=== PATIENT | female | born 1980 | race Caucasian/White ===

== ENCOUNTER 2018-11-12 00:27 | Inpatient (IN) | payer OTHER ==
[~2018-11-12] VITALS: Ht 157.5 cm; Wt 74.6 kg
--- NOTE | 2018-11-12 01:25 | NUR ---
PT A/O X 4, SPEECH CLEAR, PRESENTS TO ED WITH C/O RUQ PAIN. BREATHING E/U, SKIN WARM, DRY AND INTACT. NAD NOTED. WILL CONTINUE TO MONITOR.
[2018-11-12 01:34] LABS: BASOPHIL % 0.5 % (0-2); PLATELET COUNT 233 x10^3mcL (130-400); RED CELL DISTRIBUTION WIDTH 14.1 % (11.5-14.5)
--- NOTE | 2018-11-12 01:55 | NUR ---
MEDICATED PER MD ORDERS.
[2018-11-12 02:22] LABS: CALCIUM 8.4 mg/dL (8.5-10.1); CARBON DIOXIDE 21.7 mmol/L (21-32); CHLORIDE SERUM 108 mmol/L (98-107); CREATININE SERUM 0.6 mg/dL (0.6-1.0); GFR1 > 60 mL/min; GLUCOSE SERUM 122 mg/dL (74-106); POTASSIUM SERUM 3.9 mmol/L (3.5-5.1); SODIUM SERUM 139 mmol/L (136-145)
[2018-11-12 02:29] LABS: ALBUMIN 3.4 g/dL (3.4-5.0); ALKALINE PHOSPHATASE 191 U/L (46-116); ALT/SGPT 371 U/L (14-59); AST/SGOT 129 U/L (15-37); BILIRUBIN TOTAL 2.83 mg/dL (0.20-1.00)
[2018-11-12 02:30] LABS: LIPASE 13506 IU/L (73-393)
--- NOTE | 2018-11-12 04:02 | NUR ---
PATIENT VOMITING AT BEDSIDE. MEDICATED PER MD ORDERS. WILL CONTINUE TO MONITOR.
--- NOTE | 2018-11-12 04:28 | NUR ---
REPORT GIVEN TO JUNITO LOPEZ FOR CONTINUED CARE OF PATIENT.
--- NOTE | 2018-11-12 04:31 | NUR ---
PT RECEIVED FROM ED VIA ALYSE ACCOMPANIED BY LARISA. PT A/O X4, NORTH [place]ORE[place] SPEAKING, ABLE TO MAKE NEEDS KNOWN. MED-SURG, DENIES ANY CP/PRESSURE. PULSES PALPABLE, NO EDEMA PRESENT. BREATHING IS EVEN AND UNLABORED ON RA, NO RESP DISTRESS NOTED. ABD SOFT AND ROUND, BOWEL TONES ACTIVE X4 QUAD, PT REPORTS INTERMITTENT N/V, BUT DENIES ANY N/V AT THIS TIME. PT ADMITTED FOR GALLSTONE PANCREATITIS. VOIDS FREELY, BRP. GENERALIZED WEAKNESS, AMBULATORY WITH STEADY GAIT. SKIN IS WARM AND DRY, INTACT. PT C/O 10/10 ABD PAIN, WILL MEDICATE WITH PRN PAIN MED. IV TO LAC, PATENT AND INTACT, SITE WNL. ORIENTED PT TO ROOM AND CALL LIGHT. BED IN LOWEST SETTING, SIDE RAILS UP X2, CALL LIGHT WITHIN REACH. WILL CONT TO MONITOR.
[2018-11-12 04:41] VITALS: BP 120/66
--- NOTE | 2018-11-12 04:44 | NUR ---
PT C/O 01/24 ABD PAIN, PRN MORPHINE IVP GIVEN ORDERED. NO ACUTE DISTRESS NOTED. CALL LIGHT WITHIN REACH. WILL CONT TO MONITOR.
--- NOTE | 2018-11-12 06:57 | NUR ---
PT SLEPT AT INTERVALS THROUGHOUT THE EVENING. BREATHING IS EVEN AND UNLABORED, NO RESP DISTRESS NOTED. PT DENIES HAVING ANY PAIN AT THIS TIME. PT NPO, PT VERBALIZES UNDERSTANDING, NPO SIGN POSTED. NO ACUTE CHANGES ENCOUNTERED DURING SHIFT. ALL NEEDS MET AND ANTICIPATED. IVF INFUSING WELL, SITE WNL. CALL LIGHT WITHIN REACH, WILL ENDORSE CARE TO AM NURSE.
[2018-11-12 07:13] LABS: microscopic required? NO
--- NOTE | 2018-11-12 07:30 | NUR ---
RECEIVED PT IN BED. ASSESSED AND DOCUMENTED. DENIES PAIN THIS TIME. SAFTEY PRECAUTIONS ARE IN PLACE. WILL MONITOR.
[2018-11-12 07:37] LABS: UA SPECIFIC GRAVITY 1.015 (1.005-1.035); urine erythrocyte NEGATIVE (NEGATIVE)
[2018-11-12 07:49] LABS: AMPHETAMINE QUAL UR NONE DETECTED (See below)
--- NOTE | 2018-11-12 08:00 | NUR ---
GIOVANNA ZAVALA AWARE ABOUT PHOS=2.3, NO NEW OREDER RECEIVED THIS TIME.
[2018-11-12 08:02] LABS: BASOPHIL % 0 % (0-2); PLATELET COUNT 234 x10^3mcL (130-400)
[2018-11-12 08:22] LABS: ALT/SGPT 326 U/L (14-59); AST/SGOT 105 U/L (15-37)
[2018-11-12 08:25] LABS: CALCIUM 7.6 mg/dL (8.5-10.1); CARBON DIOXIDE 25.7 mmol/L (21-32); CHLORIDE SERUM 107 mmol/L (98-107); CREATININE SERUM 0.5 mg/dL (0.6-1.0); GFR1 > 60 mL/min; GLUCOSE SERUM 125 mg/dL (74-106); POTASSIUM SERUM 3.5 mmol/L (3.5-5.1); SODIUM SERUM 140 mmol/L (136-145)
[2018-11-12 08:29] LABS: MAGNESIUM 1.8 mg/dL (1.8-2.4); PHOSPHOROUS 2.3 mg/dL (2.5-4.9)
[2018-11-12 08:34] LABS: CHOLESTEROL/HDL RATIO 2.7; FREE THYROXINE INDEX 2.5 ug/dL (1.4-4.5); T4(THYROXINE) 7.7 ug/dL (4.7-13.3)
[2018-11-12 08:37] LABS: T3 TOTAL 0.84 ng/mL
--- NOTE | 2018-11-12 09:20 | NUR ---
WAS SEEN THE PT. SCHEDULED FOR ERCP. OR STAFF IS HERE TO TOBACCO PACKING MACHINE OPERATOR PT. OR NURSE SAID HE WILL GET CONSENT IN OR. CHECK LIST DONE. PT HAD LINDSEY WIPE. PT WENT DOWN TO OR VIA GURNEY. VITAL SIGNS STABLE.
[2018-11-12 09:35] VITALS: BP 111/72
[2018-11-12 10:15] LABS: LIPASE 17069 IU/L (73-393)
--- NOTE | 2018-11-12 12:10 | NUR ---
RECEIVED PT BACK FROM OR AFTER ERCP. PT IS STABLE. DENIES PAIN. VITAL SIGNS CHECKED AND STABLE. WILL MONITOR.
[2018-11-12 12:30] VITALS: BP 118/72
--- NOTE | 2018-11-12 14:48 | NUR ---
PT C/O ABD PAIN,11/24 AND RECIEVED MORPHIN IV AT 1418 AND REASSESSED NOW AND PT SAID NO MORE ABD PAIN. STABLE.
--- NOTE | 2018-11-12 16:20 | NUR ---
CAME AND SPOKE WITH PT, EXPLAINED PT ABOUT LAP CAITLYN AND RECIEVED CONSENT FROM PT. DENIES PAIN THIS TIME.
[2018-11-12 18:18] VITALS: BP 125/84
[2018-11-12 18:20] VITALS: BP 113/71
--- NOTE | 2018-11-12 18:38 | NUR ---
PT C/O ABD PAIN,11/24 AT 1808 AND MORPHIN IV GIVEN AND REASSESSED NOW AND PT SAID NO MORE ABD PAIN THIS TIME. STABLE.
--- NOTE | 2018-11-12 19:20 | NUR ---
PT IS SLEEPING THIS TIME. STABLE. GAVE REPORT TO MEDICAL RECORDS TECH NURSE.
--- NOTE | 2018-11-12 19:43 | NUR ---
RECEIVED PATIENT IN BED AWAKE, ALRT AND ORIENTED WITH NO C/O POST OPERATIVE PAIN AT THIS TIME. BREATHING EASY AND NONLABOR SATTING AT 98% RA. ABDOMEN ROUND AND NONTENDER WITH ACTIVE BS. INSTRUCTION ON NPO GIVEN FPR POSSIBLE PROCEDURE IN AM, PATIENT VERBALIZED UNDERSTANDING. IV TO LAC INTACT AND INFUSING WELL. WILL CONTINUE TO MONITOR. CALL LIGHT WITHIN REACH.
[2018-11-12 20:38] VITALS: BP 118/69
--- NOTE | 2018-11-12 21:15 | NUR ---
C/O ABDOMINAL PAIN AT SCALE OF 7/10 PER PATIENT ,MEDICATED WITH NORCO 1 TAB PO PRESCRIBED. WILL CONTINUE TO MONITOR. AT BEDSIDE.
--- NOTE | 2018-11-12 22:37 | NUR ---
MODRATE RELIEF NOTED PER PATIENT AFTER PAIN MEDS PO WAS GIVEN. WILL CONTINUE TO MONITOR.
--- NOTE | 2018-11-13 00:46 | NUR ---
APPEARS SLEEPING WITH EYES CLOSED, BREATHING EASY AND NONLABOR. WILL CONTINUE TO MONITOR.
--- NOTE | 2018-11-13 02:46 | NUR ---
AWAKE C/O ABDOMINAL PAIN AT SCALE OF 8/10 PER PATIENT, MORPHINE 2MG IVP GIVEN PRESCRIBED.
--- NOTE | 2018-11-13 05:05 | NUR ---
AWAKE MOST OF THE TIME C/O ABDOMINL AIN X3 THE ENTIRE SHIFT AND MEDICATED PRESCRIBED. KEPT NPO FOR SURGERY TODAY. ALL NEEDS ATTENDED.
[2018-11-13 05:35] VITALS: BP 125/73
[2018-11-13 07:05] LABS: ALKALINE PHOSPHATASE 144 U/L (46-116); ALT/SGPT 224 U/L (14-59); AST/SGOT 45 U/L (15-37); BILIRUBIN TOTAL 0.8 mg/dL (0.20-1.00); CALCIUM 7.2 mg/dL (8.5-10.1); CARBON DIOXIDE 22.7 mmol/L (21-32); CHLORIDE SERUM 107 mmol/L (98-107); CREATININE SERUM 0.5 mg/dL (0.6-1.0); GFR1 > 60 mL/min; GLUCOSE SERUM 74 mg/dL (74-106); SODIUM SERUM 142 mmol/L (136-145)
[2018-11-13 07:11] LABS: PLATELET COUNT 222 x10^3mcL (130-400); RED CELL DISTRIBUTION WIDTH 13.9 % (11.5-14.5)
--- NOTE | 2018-11-13 07:20 | NUR ---
RECEIVED PT FROM TUBER MACHINE OPERATOR. ASSESSED AND DOCUMENTED. DENIES PAIN THIS TIME. SAFTEY PRECAUTIONS ARE IN PLACE. WILL MONITOR.
[2018-11-13 07:46] LABS: BASOPHIL % 0 % (0-2)
[2018-11-13 08:18] LABS: ALBUMIN 2.6 g/dL (3.4-5.0); LIPASE 5485 IU/L (73-393); POTASSIUM SERUM 2.9 mmol/L (3.5-5.1); TOTAL PROTEIN, SERUM 5.7 g/dL (6.4-8.2)
--- NOTE | 2018-11-13 08:30 | NUR ---
AWARE ABOUT K=2.9 AND WBC=14. HE SAID HE WILL PUT ORDER.
--- NOTE | 2018-11-13 08:32 | NUR ---
PT C/O SEVERE ABD PAIN,12/25. ADMINISTERED MORPHIN IV 2MG ORDERED AT 0802. REASSESSED NOW AND PT IS SLEEPING, NO SIGNS OF PAIN.
[2018-11-13 09:27] VITALS: BP 111/72
--- NOTE | 2018-11-13 10:30 | NUR ---
AWARE ABOUT XRAY ABD RESULT, NO NEW ORDER RECEIVED THIS TIME.
--- NOTE | 2018-11-13 13:48 | NUR ---
PT C/O PAIN AT 1318 AND ADMINISTERED DILUDID IV ORDERED AT 1318 AND REASSESSED NOW AND PT SAID NO MORE PAIN.
--- NOTE | 2018-11-13 14:08 | NUR ---
PT VOIMITED MODERATE AMOUNT AFTER DILUDID, ZOFRAN 4MG IV GIVEN AND INFORMED , HE SAID HE WILL DECREASE THE DOSE OF DILUDID IV. PT IS STABLE.
--- NOTE | 2018-11-13 15:00 | NUR ---
PT RESTING IN BED COMFORTABLY. DENIES PAIN. NO NAUSEA THIS TIME. WILL MONITOR.
[2018-11-13 17:04] VITALS: BP 104/62
--- NOTE | 2018-11-13 19:10 | NUR ---
PT RESTING IN BED COMFORTABLY. DENIES PAIN.O NO NAUSEA. STABLE. GAVE REPORT TO ELECTRONIC DEVICE REPAIRER NURSE.
--- NOTE | 2018-11-13 19:50 | NUR ---
RECEIVED REPORT FROM DAY SHIFT RN. PT RESTING WITH EYES CLOSED. EASILY AROUSABLE WITH VERBAL STIMULI. NO RESPIRATORY DISTRESS ON ROOM AIR. NO C/O N/V/ABD PAIN. IV TO LAC, LR INFUSING. SAFETY MEASURES IN PLACE. BED IN LOWEST POSITION. SIDE RAILS UP X2. INSTRUCTED PT TO USE THE CALL LIGHT FOR ASSISTANCE. CALL LIGHT WITHIN REACH.
[2018-11-13 21:03] VITALS: BP 114/72
--- NOTE | 2018-11-13 21:53 | NUR ---
PT C/O CRAMPING PAIN TO ABD 10/24. NORCO GIVEN.
--- NOTE | 2018-11-14 01:51 | NUR ---
PT RESTING WITH EYES CLOSED. NO SOB NOTED. NO FACIAL GRIMACING. CALL LIGHT WITHIN REACH. WILL CONTINUE TO MONITOR.
--- NOTE | 2018-11-14 03:02 | NUR ---
C/O ABD CRAMPING PAIN 10/24. PT RESFUSED NORCO. DILAUDID GIVEN.
[2018-11-14 06:02] VITALS: BP 100/70
[2018-11-14 06:17] LABS: CALCIUM 7.4 mg/dL (8.5-10.1); CARBON DIOXIDE 28.2 mmol/L (21-32); CHLORIDE SERUM 105 mmol/L (98-107); CREATININE SERUM 0.5 mg/dL (0.6-1.0); GFR1 > 60 mL/min; GLUCOSE SERUM 98 mg/dL (74-106); POTASSIUM SERUM 3.8 mmol/L (3.5-5.1); SODIUM SERUM 139 mmol/L (136-145)
--- NOTE | 2018-11-14 07:00 | NUR ---
PT RESTING IN BED. NO SOB ON ROOM AIR. NO DISTRESS NOTED. NPO MIDNIGHT FOR LAP CAITLYN TODAY AT 1300. CONSENT SIGNED. CHECKLIST STARTED. SAFETY MEASURES MAINTAINED. ALL NEEDS ATTENDED TO. CALL LIGHT WITHIN REACH. WILL ENDORSE TO DAY SHIFT RN.
[2018-11-14 07:10] LABS: PLATELET COUNT 220 x10^3mcL (130-400); RED CELL DISTRIBUTION WIDTH 14.2 % (11.5-14.5)
[2018-11-14 07:11] LABS: BASOPHIL % 0 % (0-2)
--- NOTE | 2018-11-14 07:54 | NUR ---
HANDOFF REPORT RECEIVED. PATIENT AWAKE FLAT IN BED. STATED " I HAVE PAIN ON CHEST WHEN I BREATH DEEP". DIMINISHED BREATH SOUNDS BILATERALLY. O2 SAT. 90% INITIALLY. TAUGHT USE OF INCENTIVE SPIROMETER (1000 ) 10X EVERY HOUR. SAT INCREASED TO 94%
[2018-11-14 08:17] VITALS: BP 118/74
--- NOTE | 2018-11-14 09:38 | NUR ---
RESTING AT THIS TIME. PERFORMING INCENTIVE SPIROMETER TO 1,500 LEVEL. CALL CAMPOVERDE WITHIN REACH.
--- NOTE | 2018-11-14 12:01 | NUR ---
LASIX 20 IVP GIVEN FOR POSITIVE FLUID BALANCE ORDERED BY MD LEARY.
--- NOTE | 2018-11-14 13:25 | NUR ---
SALINE LOCK PT, PT OFF THE UNIT TO OR FOR SURGERY, NO DISTRESS NOTED.
--- NOTE | 2018-11-14 16:09 | NUR ---
REPORT RECEIVED FROM JUNITO BELTRAN FROM PACU. AWAITING PATIENT ARRIVAL.
--- NOTE | 2018-11-14 16:45 | NUR ---
BACK TO FLOOR S/P LAP CAITLYN WITH CHOLANGIOGRAM. DROWSY BUT RESPONDS APPROPRIATELY. STATED " I WANT TO SLEEP". 5 ABDOMINAL LAP SITES DRY AND INTACT. ABDOMEN SOFT. 02 AT 2LPM IN USE. HOB UP TO 30 DEGREES. AT BEDSIDE. INSTRUCTED TO CALL RN FOR ANY NEED. CALL CAMPOVERDE WITHIN REACH.
[2018-11-14 16:48] VITALS: BP 114/73
[2018-11-14 17:07] VITALS: BP 114/73
--- NOTE | 2018-11-14 17:29 | NUR ---
DIALUDID 0.5MG IVP GIVEN FOR ABDOMINAL PAIN. UPPER SIDERAILS UP. CALL CAMPOVERDE WITHIN REACH
[2018-11-14 19:15] VITALS: BP 113/62
--- NOTE | 2018-11-14 19:15 | NUR ---
HANDOFF REPORT GIVEN TO JUNITO MAURER. PATIENT ON CLEAR LIQUID. DENIES ANY NAUSEA. CALL CAMPOVERDE WITHIN REACH.
--- NOTE | 2018-11-14 19:15 | NUR ---
RECEIVED PT S/P LAP CAITLYN TODAY WITH ABDOMINAL INCISION X5 WITH DERMABOND.ABDOMEN SOFT AND ROUND.HYPOACTIVE BOWEL SOUNDS.NAUSEATED BUT NO VOMITING NOTED.DENIES ADOMINAL INCISION PAIN,VERBALIZED RELIEF FROM PAIN MEDS GIVEN EARLIER.DENIES PASSING GAS YET AT THIS TIME.ENCOURAGED USE OF INCENTIVE SPIROMETER DOING 1500 AT THIS TIME.WILL AMBULATE TO BR TOLERATED.HASN'T VOIDED YET SINCE SURGERY.BP 113/62 MMHG,HR 73.WILL CONTINUE TO MONITOR.
--- NOTE | 2018-11-14 21:49 | NUR ---
PT AMBULATED TO AND ASSISTED BY AND VOIDED 400 ML JOSH COLORED URINE.CONTINUE TO ENCOURAGED DEEP BREATHING EXERCISES AND USE OF I.S.WILL CONTINUE TO MONITOR.
--- NOTE | 2018-11-15 04:43 | NUR ---
PT SLEPT WELL.AMBULATED TO BR AND VOIDED WELL.CONTINUES TO ENCOURAGED AMBULATION AND USE OF INCENTIVE SPIROMETER.NO ASE NOTED FROM ZOSYN IV ATB.DENIES ANY PAIN ALL NIGHT.ALL NEEDS MET.WILL CONTINUE TO MONITOR.
[2018-11-15 05:48] VITALS: BP 107/66
[2018-11-15 06:23] LABS: PLATELET COUNT 239 x10^3mcL (130-400); RED CELL DISTRIBUTION WIDTH 14.3 % (11.5-14.5)
[2018-11-15 06:44] LABS: ALKALINE PHOSPHATASE 163 U/L (46-116); ALT/SGPT 126 U/L (14-59); AST/SGOT 50 U/L (15-37); BILIRUBIN TOTAL 0.5 mg/dL (0.20-1.00); CALCIUM 7.4 mg/dL (8.5-10.1); CARBON DIOXIDE 29.3 mmol/L (21-32); CHLORIDE SERUM 103 mmol/L (98-107); CREATININE SERUM 0.5 mg/dL (0.6-1.0); GFR1 > 60 mL/min; GLUCOSE SERUM 108 mg/dL (74-106); POTASSIUM SERUM 3.3 mmol/L (3.5-5.1); SODIUM SERUM 140 mmol/L (136-145)
[2018-11-15 06:46] LABS: ALBUMIN 2.2 g/dL (3.4-5.0); TOTAL PROTEIN, SERUM 5.8 g/dL (6.4-8.2)
[2018-11-15 07:10] LABS: BASOPHIL % 0 % (0-2)
--- NOTE | 2018-11-15 07:25 | NUR ---
RECEIVED PATIENT IN BED AWAKE/ALERT, REPORT PAIN IS RELIEVED FROM MED 06/24. DISCUSS POC WITH PATIENT, ENCOURAGE PATIENT TO GET UP AND WALK AFTER EACH MEAL AND USING INCENTIVE SPIROMETER WHILE IN BED. PT VERBALIZE OKAY. IV TO LAC INTACT AND INFUSING WELL. CALL LIGHT WITHIN REACH.
--- NOTE | 2018-11-15 09:07 | NUR ---
PATIENT RESTING IN BED REPORT TO RN ABD PAIN 6/10 AFTER WHEN TO BATHROOM, WILL MEDICATE FOR PAIN WITH NORCO. KCL 40 MEQ PO ADMINISTERED; K 3.3 CONT TO MONITOR.
[2018-11-15 09:10] VITALS: BP 105/67
--- NOTE | 2018-11-15 12:11 | NUR ---
PATIENT WALKING IN THE HALLWAY AT THIS TIME, PAIN IS TOLERABLE PER PATIENT REPORT.
--- NOTE | 2018-11-15 13:50 | NUR ---
PATIENT RESTING IN BED NO COMPLAIN, NO PAIN AT THIS TIME. ZOSYN IVPB INFUSING TO LH IV PATENT. NEEDS MET. CONT TO MONITOR.
[2018-11-15 16:14] VITALS: BP 115/74
--- NOTE | 2018-11-15 17:35 | NUR ---
PATIENT TOLERATED FULL LIQUID DIET, WALKING IN THE HALLWAY AT THIS TIME. MILD PAIN. BURPING, NO FLATUS. CONT TO MONITOR.
--- NOTE | 2018-11-15 18:25 | NUR ---
PATIENT SAT UP IN BED WATCHING TV, C/O ABD PAIN 10/24 NORCO 1 TAB PO ADMINISTERED, NEEDS MET. PATIENT REPORT PASSING GAS. NO BM YET. CONT TO MONITOR.
--- NOTE | 2018-11-15 19:30 | NUR ---
RECEIVED PT FROM AM NURSE. PT LAYING DOWN IN BED WITH FAMILY AT BEDSIDE. PT AAOX4, FOLLOW COMMANDS. ABLE TO MAKE NEEDS KNOWN. MED-SURG. DENIES ANY CP/PRESSURE AT THIS TIME. PALPABLE PULSES TO ALL ESTREMITIES. NO EDEMA NOTED. LUNG SOUNDS CTA ON RA. BREATHING EVEN AND UNLBORED. S/P LAP CAITLYN. ABD SOFT AND NONDISTENDED. ACTIVE BS X4 QUAD. STATED PASSING GAS BUT NO BM YET. LAST BM 11/11/18. VOIDS FREELY BRP. AMBULATORY. ABD INCISIONS X5 KHLOE. NO REDNESS OR SWELLING AT THE SITES. IV TO LAC PATENT AND INTACT. SITE FREE FROM REDNESS AND SWELLING. PT STATES SHE FEELING WARM. TEMP 100.6, COOLING MEASURES INITIATED. WILL REASSESS TEMP. BED AT LOWEST SETTING. SIDE RAILSX2 UP. CALL LIGHT WITHING REACH. WILL CONTINUE TO MONITOR.
[2018-11-15 19:48] VITALS: BP 112/47
[2018-11-15 21:38] VITALS: Ht 157.5 cm; Wt 74.6 kg
--- NOTE | 2018-11-15 23:00 | NUR ---
PT TEMP 100.6, COOLING MEASURES IN PLACE. TEMP CONTINUES TO BE HIGH. 100.5. DR ADAMS MADE AWARE. ORDERS FOR PRN TYLENOL RECEIVED. TYLENOL GIVEN PER JUN. TEMP REASSESSED. CURRENT TEMP 99.2. COOLING MEASURES STILL IN PLACE. WILL CONTNUE TO MONITOR.
--- NOTE | 2018-11-16 01:10 | NUR ---
PT C/O 11/24 ABD PAIN DESCRIBED ACHING. MEDICATED WITH PRN NORCO. REASSESSED TEMP. CURRENT TEMP 99.4. COOLING MEASURES IN PLACE. WILL CONTINUE TO MONITOR.
--- NOTE | 2018-11-16 01:53 | NUR ---
PT LAYING DOWN IN BED WITH EYES CLOSED. BREATHING EVEN AND UNLABORED ON RA. NO NO ACUTE DISTRES NOTED. LR RUNNING TO LH FREELY. SITE FREE FROM REDNESS AND SWELLING. BED AT LOWEST SETTING. SIDE RAILS X2 UP. CALL LIGHT WITHING REACH. WILL CONTINUE TO MONITOR.
[2018-11-16 05:38] LABS: BASOPHIL % 0.1 % (0-2); PLATELET COUNT 267 x10^3mcL (130-400); RED CELL DISTRIBUTION WIDTH 14.4 % (11.5-14.5)
--- NOTE | 2018-11-16 05:41 | NUR ---
PT TEMP 100, MEDICATED WITH PRN TYLENOL. COOLING MEASURES IN PLACE. WILL REASSESS TEMP. NO ACUTE DISTRESS NOTED. WILL CONTINUE TO MONITOR.
[2018-11-16 05:44] VITALS: BP 117/69
[2018-11-16 05:44] LABS: CALCIUM 8.4 mg/dL (8.5-10.1); CARBON DIOXIDE 29.5 mmol/L (21-32); CHLORIDE SERUM 103 mmol/L (98-107); CREATININE SERUM 0.6 mg/dL (0.6-1.0); GFR1 > 60 mL/min; GLUCOSE SERUM 106 mg/dL (74-106); POTASSIUM SERUM 3.8 mmol/L (3.5-5.1); SODIUM SERUM 137 mmol/L (136-145)
[2018-11-16 06:12] VITALS: BP 117/69
--- NOTE | 2018-11-16 06:44 | NUR ---
PT SLEPT AT INTERVALS THROGHOUT THE NIGHT. BREATHING EVEN AND UNLABORED ON RA. NO ACUTE DISTRES NOTED. TEMP REASSESSED. CURRENT TEMP 99.1. ALL NEEDS ASSESSED AND ATTENDED TO. BED AT LOWEST SETTING. SIDE RAILS X2 UP. CALL LIGHT WITHING REACH. WILL ENDORSE CARE TO AM NURSE.
--- NOTE | 2018-11-16 07:28 | NUR ---
PT C/0 10/24 ABD PAIN. MEDICATED WITH PRN NORCO PER JUN. WILL ENDORSE CARE TO AM NURSE.
--- NOTE | 2018-11-16 08:00 | NUR ---
SHIFT ASSESSMENT DONE. PATIENT A/A/OX4; DENIED CHEST PAIN. NO SOB. ABD ROUND/SOFT. SURGICAL INCISION X5 TO ABD CLOSED WITH DERMABAND. NO REDNESS/ DRAINAGE. C/O ABD PAIN AND LT SHOULDER PAIN. NORCO GIVEN AT 0730. FINISHED 20% OF FULL LIQUID DIET BREAKFAST. NO N/V. STATED HAD PAASES GAS, BUT NO BM YET. IVF OF LR 70CC/HR. IV SITE TO L HAND INTACT. VOID FREELY. CALL LIGHT IN REACH.
[2018-11-16 09:34] VITALS: BP 120/78
--- NOTE | 2018-11-16 13:55 | NUR ---
Initial Nutrition Assessment: (208-A) JHONATAN CHARLES 38F Dx: Gallstone pancreatitis PMHx: No siginificant PSHx: None Labs: BUN 3.0 L, Alb 2.2 L, Ca 8.4 L, AST 50 H, ALT 126 H, Alk Phos 163 H, LDH 255 H, Amylase 2578 H, Lipase 181 WNL (improving), Ketones 1+ Meds: Lactated ringers, Zofran Diet: Full Liquid PO intake since admission: ~37% Ht: 62in Wt: 164# BMI: 30.1 Bed scale: Unable to assess (pt walking around unit) IBW: 110# %IBW: 149% UBW: 161# Age: 38 Food Allergies: NKFA Skin: Abd incisions x 5 KHLOE, no redness or swelling at the sites Zachery: 20 Edema: BLE GI: Active BS x4 quad, states passing gas, abd soft and nondistended Last BM: 11/11 Note (11/16): Noted pt w/ gallstone pancreatitis, pt's diet should be restricted to about 57-69g fat, as tolerated. Visited pt in the hallway walking around unit w/ . Pt c/o pain L shoulder area, abd pain 5-6/10. Pt states appetite is about fair, encouraged pt for better PO intake. Provided and explained handout on Pancreatitis Nutrition Therapy, pt states no previous knowledge on appropriate diet for her diagnosis. Explained to pt and pt's to monitor fat intake, functionality of the pancreas and gallbladder in digestion and gut health, and examples of appropriate and inappropriate foods. All questions answered. Spoke w/ [employer]i regarding ONS, confirmed. Problem with: N/V/D/C: None Problems with: Chewing: No Swallowing: No Current appetite: fair Recent wt change: No %wt change: No Vitamin/Supplement use: None Special diet at home: Regular Physical activity: N/A Nutrition education given (specify specific nutrition education and handout given): [facility] Pancreatitis Nutrition Therapy - function of the pancrease and gallbladder, importance of restricting fat, examples of appropriate foods. Food-drug interactions? Education given? [facility] Pancreatitis Nutrition Therapy Estimated Nutritional Needs Based on current body weight (75 kg) Energy: 1440-5153 kcal/day (25-30 kcal/kg for maintenance) Protein: 75-90 g/day (1.0-1.2 g/kg for maintenance) Fluid: 0052-8096 mL/day (1 mL/kcal) per MD Nutrition Diagnosis: 1. Inadequate oral intake r/t poor PO, altered GI function AEB PO intake <50%, fair appetite Intervention 1. Add Ensure Clear TID w/ each meal 2. Advance diet as tolerates to Low Fat diet Monitor/Evaluate Goal: PO intake at least 75% of estimated needs Monitor: PO intake, Labs, GI function F/U in 3-5 days as moderate risk 11/19-11/21
--- NOTE | 2018-11-16 13:56 | NUR ---
Recommendations: 1. Add Ensure Clear TID w/ each meal 2. Advance diet as tolerates to Low Fat diet
--- NOTE | 2018-11-16 14:09 | NUR ---
TEMP = 100.4; TYLENOL 650MG PO GIVEN. CONTINUE MONITOR.
--- NOTE | 2018-11-16 15:30 | NUR ---
RECHECKED TEMP =102.4 (OR). TYLENOL 650MG PO GIVEN AT 1409. COOLING MEASURE CONTINUE. TRIED TO PAGE GIOVANNA ZAVALA, BUT NO ANSWER.
--- NOTE | 2018-11-16 16:09 | NUR ---
SALLY CALLED BACK. REPORTED PATIENT'S FEVER AND WBC 14.9; O2 SAT 89-90% ON RA. WAITING FOR NEW ORDER.
[2018-11-16 17:14] VITALS: BP 103/56
--- NOTE | 2018-11-16 18:12 | NUR ---
C/O LT SHOULDER PAIN ON 09/24. NORCO 7.5/325 PO GIVEN. CONTINUE MONITOR.
--- NOTE | 2018-11-16 18:21 | NUR ---
PATIENT WALKED IN [address] X3. HAD VOID VIA BRP X 3; PASSING GAS(+); NO BM YET. PATIENT REFUSED DULCOLAX SUPP. LAST TEMP = 100.5 (OR). COOLING MEASURE CONTINUE. IVF OF LR 70CC/HR. ENDORSED CARE TO [facility] NURSE.
--- NOTE | 2018-11-16 18:30 | NUR ---
CT SCAN OF ABD/PELVIC DONE. RESULT IN CHART. DR. CHRIS WAS IN OR FOR SURGERY. CALLED OR NURSE TO NOTIFY DR. CHRIS TO REVIEW PATIENT'S CT RESULT AND TEMPERATURE.
--- NOTE | 2018-11-16 19:40 | NUR ---
RECEIVED REPORT FROM DAY SHIFT RN. PT RESTING IN BED. AA&O X4. NO SOB ON O2 2L VIA NC. BREATHING EVEN AND UNLABORED. NO C/O PAIN AT THIS TIME. NO DISTRESS NOTED. ABD INCISIONS X5 WITH DERMABOND, INTACT. PT STATES NO BM YET BUT PASSING GAS. ENCOURAGED PT TO AMBULATE AND USE THE I.S. IV TO LEFT HAND, LR INFUSING. SAFETY MEASURES IN PLACE. BED IN LOWEST POSITION. SIDE RAILS UP X2. INSTRUCTED PT TO USE THE CALL LIGHT IF ASSISTANCE IS NEEDED. CALL LIGHT WITHIN REACH.
[2018-11-16 20:38] VITALS: BP 111/60
--- NOTE | 2018-11-16 22:52 | NUR ---
TEMP 101.8. TORADOL GIVEN.
--- NOTE | 2018-11-17 00:50 | NUR ---
PT RESTING WITH EYES CLOSED. NO SOB ON O2 2L ANC. NO FACIAL GRIMACING. NO DISTRESS NOTED. CALL LIGHT WITHIN REACH. WILL CONTINUE TO MONITOR.
[2018-11-17 06:03] LABS: PLATELET COUNT 295 x10^3mcL (130-400)
[2018-11-17 06:18] VITALS: BP 110/63
[2018-11-17 06:28] LABS: CALCIUM 8.1 mg/dL (8.5-10.1); CARBON DIOXIDE 29.2 mmol/L (21-32); CHLORIDE SERUM 102 mmol/L (98-107); CREATININE SERUM 0.6 mg/dL (0.6-1.0); GFR1 > 60 mL/min; GLUCOSE SERUM 97 mg/dL (74-106); POTASSIUM SERUM 4.1 mmol/L (3.5-5.1); SODIUM SERUM 137 mmol/L (136-145)
--- NOTE | 2018-11-17 06:40 | NUR ---
PT SLEPT AT INTERVALS THROUGHOUT SHIFT. NO SOB ON O2 2L VIA NC. TYLENOL GIVEN FOR TEMP 100.4 THIS AM. ABD INCISIONS X5 WITH DERMABOND, C/D/I. AMBULATES TO THE BATHROOM. NO BM BUT PASSING GAS. ENCOURAGED PT TO USE THE I.S. AND TO AMBULATE. SAFETY MEASURES MAINTAINED. CALL LIGHT WITHIN REACH. ALL NEEDS ATTENDED TO. WILL ENDORSE CONTINUITY OF CARE TO ONCOMING RN.
[2018-11-17 06:53] LABS: BASOPHIL % 0 % (0-2); RED CELL DISTRIBUTION WIDTH 14.6 % (11.5-14.5)
--- NOTE | 2018-11-17 07:06 | NUR ---
TEMP 101.4. COOLING MEASURES IN PLACE.
--- NOTE | 2018-11-17 08:01 | NUR ---
RECEIVED PATIENT AWAKE AND ORIENTED TIMES FOUR. LUNGS ARE MILDLY DIMINISHED BUT CLEAR AND OFF THE 02 AT THIS TIME. ENCOURAGED USE OF THE SPIROMETER INDICATED. PATIENT HAS ACTIVE BOWEL SOUND AND ABDOMEN IS SOFT. SHE HAS DERMABOND TO THE ABDOMEN TIMES FIVE SITES AND ALL ARE INTACT AND NO SIGNS OF INFECTION BUT DO NOTE BRUISING. PATIENT HAS BEEN OOB TO THE RESTROOM AND NO BM YET NOTED. VITALS AT THIS TIME AT 99.0, 111, 19, 110/63, 97%. NOTED LABS IS THE WBC AT 18.9, H AND H OF 10.5/32, BUN AT 6.0 AND THE CA AT 8.1. THE AST AT 50, ALT AT 126 AND THE ALK AT 163. HER ALBUMEN AT 2.2. PATIENT HAS BEEN ON ZOSYN AND NO ADVERSE REATION NOTED. THE PATIENT HAS SOME INFLAMATION TO THE PANCREAS AND HAS MODERATE PLEURAL EFFUSION TO THE LEFT LUNG AND SMALL TO THE RIGHT WITH ATELECTASIS TO BOTH LUNGS AND THIS IS IMPARATIVE SHE DEEP BREATH AND USE THE SPIROMETER. PATIENT HAD ERCP ON THE 11/12 AND A CHOLECYSECTOMY ON THE 11/14. PATIENT HAS TOLERATED THE LOW FAT DIET. WILL CONTINUE TO MONITOR.
[2018-11-17 09:05] VITALS: BP 105/62
--- NOTE | 2018-11-17 10:09 | NUR ---
SEEN BY THE RESIDENTS AND PLAN OF CARE DISCUSSED. PATIENT IS TO STAY TODAY DUE TO THE INFLAMATION PER THE PATIENT UNDERSTANDING. NOTED TOO THE PATIENT HAS HAD PLEURAL EFFUSIONS TO THERESA LUNGS ARE WELL. WILL CONTINUE TO MONITOR
--- NOTE | 2018-11-17 10:44 | NUR ---
PATIENT TEMPERATURE AT 900AM AT 97.4. WILL CONTINUE TO MONITOR AND ENCOURAGE AMBULATION AND DEEP BREATHING.
--- NOTE | 2018-11-17 16:01 | NUR ---
FEVER NOTED AND PATIENT GIVEN TYLENOL AND WILL MONITOR FOR EFFECTIVENESS. COOL MEASURES IN PLACE.
[2018-11-17 17:14] VITALS: BP 119/69
--- NOTE | 2018-11-17 18:43 | NUR ---
SEEN BY DR MANDEL AND ORDERS FOR URINE CULTURE, CHEST XRAY AND US OF THE [facility] TO RULE OUT DVT NOTED. PATIENT HAS BEEN GIVEN TORADOL WHEN THE TYLNEOL WAS ONLY REDUCING THE FEVER TO 100.8. WILL CONTINUE TO MONIOR.T
--- NOTE | 2018-11-17 19:25 | NUR ---
RECIEVED PT RESTING IN BED WITH NO COMPLAINTS OF PAIN OR SOB, ASSESSMENT PERFORMED AT THIS TIME, PT IS A/OX4 NO COMPLAINTS OF STARR OR DIZZINESS, PT ABD WOUNDS CLOSED AND HAS SUROUNDING ECHYMOSIS, PT DENIES SOB AT THIS TIME, SAFETY PRECAUTIONS IN PLACE, WILL CONTINUE TO MONITOR
[2018-11-17 19:36] LABS: microscopic required? NO
[2018-11-17 19:41] LABS: urine erythrocyte NEGATIVE (NEGATIVE)
--- NOTE | 2018-11-17 22:40 | NUR ---
PT RESTING IN BED WITH NO ACUTE DISTRESS WATCHING TV, PT DENIES PAIN OR SOB AT THIS TIME, ALL NEEDS ATTENDED TO AT THIS TIME, WILL CONTINUE TO MONITOR
[2018-11-17 23:02] VITALS: BP 115/73
--- NOTE | 2018-11-18 01:00 | NUR ---
PT CALLED SAYS SHE FEELS HOT, TOOK TEMP, TEMP WAS 100.4, ADMINISTERED TYLENOL PER ORDER, WILL CONTINUE TO MONITOR AND ENDORSE CARE
--- NOTE | 2018-11-18 02:19 | NUR ---
RECHECKED PT TEMP, TEMP WAS 101.6, ADMINISTERED TORADOL PRN, WILL CONTINUE TO MONITOR
--- NOTE | 2018-11-18 02:20 | NUR ---
COOLING MEASURES IN PLACE, ICE PACK X2, BLANKETS REMOVED, ROOM TEMP LOWERED, WILL CONTINUE TO MONITOR
[2018-11-18 05:00] VITALS: BP 110/62
--- NOTE | 2018-11-18 06:27 | NUR ---
PT RESTED THROUGH THE NIGHT, PT HAD INCREASED TEMP THAT DID NOT RESPOND TO PRN TYLENOL, AFTER ADMIN TORADOL AND IMPLEMENTING FURTHER COOLING MEASURES, THE TEMP DECREASED AND HAS BEEN WNL SINCE, PT HAD NO ACUTE DISTRESS THROUGH THE NIGHT, SAFETY PRECAUTIONS IN PLACE, WILL CONTINUE TO MONITOR AND ENDORSE CARE TO ONCOMING RN
[2018-11-18 06:41] LABS: AMYLASE 43 U/L (25-115); LIPASE 143 IU/L (73-393)
--- NOTE | 2018-11-18 07:20 | NUR ---
RECEIVED PT. IN BED A/A/O X3. NO SOB, NO N/V NOTED. PT. DENIES ANY PAIN AT THIS TIME. LR RUNNING AT 70 CC/HR VIA IV SITE AT L HAND. BED IN LOW POS., CALL LIGHT WITHIN REACH. SIDE RAILS UP X3. SCD TO BLE MAINTAINED.
[2018-11-18 09:20] VITALS: BP 115/68
[2018-11-18 09:37] LABS: PLATELET COUNT 333 x10^3mcL (130-400)
[2018-11-18 09:38] LABS: BASOPHIL % 0 % (0-2); RED CELL DISTRIBUTION WIDTH 15.2 % (11.5-14.5)
[2018-11-18 10:46] LABS: CALCIUM 7.8 mg/dL (8.5-10.1); CARBON DIOXIDE 25.6 mmol/L (21-32); CHLORIDE SERUM 104 mmol/L (98-107); CREATININE SERUM 0.6 mg/dL (0.6-1.0); GFR1 > 60 mL/min; GLUCOSE SERUM 106 mg/dL (74-106); POTASSIUM SERUM 3.6 mmol/L (3.5-5.1); SODIUM SERUM 139 mmol/L (136-145)
--- NOTE | 2018-11-18 11:08 | NUR ---
C/O FEELING NAUSEATED. ZOFRAN 4MG IV GIVEN.
--- NOTE | 2018-11-18 12:18 | NUR ---
TEMP.= 100.8. TYLENOL 650MG PO GIVEN. COOLING MEASURES APPLIED.
[2018-11-18 17:41] VITALS: BP 132/77
--- NOTE | 2018-11-18 18:40 | NUR ---
TEMP.= 102.2. TYLENOL 650MG PO GIVEN. COOLING MEASURES APPLIED.
--- NOTE | 2018-11-18 19:30 | NUR ---
RECIEVED PT RESTING IN BED WITH NO ACUTE DISTRESS AND 4 FAMILY MEMBERS AT BEDSIDE, ASSESSMENT PERFORMED, PT IS A/OX4, NO COMPLAINTS OF STARR OR DIZZINESS AT THIS TIME, PT DENIES PAIN OR SOB, PT EDUCATED ON IMPORTANCE OF AMBULATION, ALL NEEDS ATTENDED TO AT THIS TIME, SAFETY PRECAUTIONS IN PLACE, WILL CONTINUE TO MONITOR
[2018-11-18 20:59] VITALS: BP 120/67
--- NOTE | 2018-11-18 21:10 | NUR ---
PT AMBULATED AROUND UNIT 2 TIMES, PT DENIES SOB OR PAIN, RETURNED TO ROOM, AFETY PRECAUTIONS IN PLACE, WILL CONTIUE TO MONITOR
--- NOTE | 2018-11-18 21:13 | NUR ---
CONTACTED DR PLASCENCIA ABOUT PERSISTANT FEVER, NO NEW ORDERS AT THIS TIME, COOLING MEASURES IN PLACE, FEVER TRENDING DOWN
--- NOTE | 2018-11-18 21:42 | NUR ---
TEMP DOWN TO 99.2
--- NOTE | 2018-11-18 22:36 | NUR ---
PT RESTING IN BED WATCHING TV, FAMILY HAS GONE HOME, PT DENIES PAIN OR SOB, ALL NEEDS ATTENDED TO AT THIS TIME, SAFETY PREACUTIONS IN PLACE, WILL CONTINUE TO MONITOR
--- NOTE | 2018-11-19 00:38 | NUR ---
PT RESTING IN BED WATCHING TV, PT COMPLAINS OF 5/10 THROBBING ABD PAIN, ADMINISTERED TORADOL PER ORDER, WILL CONTINUE TO MONITOR
--- NOTE | 2018-11-19 03:10 | NUR ---
PT RESTING IN BED WITH EYES CLOSED, NO ACUTE RESPIRATORY DISTRESS NOTED AT THIS TIME, PT AROUSABLE TO VERBAL STIMULI, DENIES PAIN OR SOB AT THIS TIME, SAFETY PRECAUTIONS IN PLACE
[2018-11-19 04:44] VITALS: BP 116/73
--- NOTE | 2018-11-19 05:10 | NUR ---
PT RESTED IN BED THROUGH EVENING, PT DID WALKED TWO LAPS AROUND NURSING STATION WITHOUT SOB OR PAIN, PT HAD FEVER DURING BEGGINING OF SHIFT THAT SUBSIDED WITH PRN ADMINISTRATION OF TYLENOL, PT AFEBRILE THROUGH REMAINDER OF SHIFT. PT HAD ONE EPISODE OF ABD PAIN THAT SUBSIDED WITH PRN ADMINISTRATION OF TORADOL PER ORDER, PT ALSO HAD COMPLAINT OF NAUSEA TREATED WITH PRN ADMINISTRATION OF ZOFRAN, PT IS CURRENTLY STABLE AND ALL NEEDS ATTENDED TO WILL CONTINUE TO MONITOR AND ENDORSE CARE TO ONCOMING SHIFT
[2018-11-19 06:24] LABS: CALCIUM 8.1 mg/dL (8.5-10.1); CARBON DIOXIDE 27.8 mmol/L (21-32); CHLORIDE SERUM 103 mmol/L (98-107); CREATININE SERUM 0.5 mg/dL (0.6-1.0); GFR1 > 60 mL/min; GLUCOSE SERUM 105 mg/dL (74-106); POTASSIUM SERUM 3.3 mmol/L (3.5-5.1); SODIUM SERUM 140 mmol/L (136-145)
[2018-11-19 06:43] LABS: BASOPHIL % 0 % (0-2); PLATELET COUNT 420 x10^3mcL (130-400); RED CELL DISTRIBUTION WIDTH 15.2 % (11.5-14.5)
--- NOTE | 2018-11-19 07:15 | NUR ---
RECIVED HAND OFF REPORT FROM NIGHT NURSE, PATIENT FOUND LAYING SUPINE IN BED ON ROOM AIR WITH EYES CLOSED, BREATHING REGULAR AND UNLABORED. PATIENT APPARENTLY ASLEEP. CALL LIGHT WITHIN REACH ON BED, WILL CONTINUE TO MONITOR.
--- NOTE | 2018-11-19 08:42 | NUR ---
ADMINISTERED MEDICATION PER JUN. POTASSIUM 3.3, ADMINISTERED ORDERED PO POTASSIUM. PATIENT COMPLAINING OF NAUSEA, ADMINISTERED ZOFRAN PER JUN. PATIENT AMBULATED TO RESTROOM AT THIS TIME. NO COMPLAINTS OF PAIN TO ABD. ENCOURAGED PATIENT TO AMBULATE IN HALLWAY. CALL LIGHT WITHIN REACH, WILL CONTINUE TO MONITOR
[2018-11-19 09:20] VITALS: BP 123/73
--- NOTE | 2018-11-19 10:01 | NUR ---
ADMINISTERED ANTIBIOTIC PER JUN. PATIENT SITTING UP IN BEDISDE CHAIR AT THIS TIME. NAUSEA RESOLVED. PATIENT HAD NO COMPLAINTS. CALL LIGHT WITHIN REACH
--- NOTE | 2018-11-19 12:54 | NUR ---
PATIENT SITTING UP IN BED AT THIS TIME, FAMILY MEMBERS AT BEDSIDE. PATIENT HAD NO COMPLAINTS. PT SAW PATIENT AND WALKED PATIENT IN ROOM AND HINOJOSA. CALL LIGHT WITHIN REACH, WILL CONTINUE TO MONITOR
--- NOTE | 2018-11-19 16:01 | NUR ---
PATIENT SITTING UP IN BED AT THIS TIME. NO COMPLAINTS OR DISTRESS. PATIENT AT BEDSIDE. UPDATED ON PLAN OF CARE. ENCOURAGED PATIENT TO WRITE DOWN QUESTIONS FOR DR/PARA OPERATOR IN AM. CALL LIGHT WITHIN REACH WILL CONTINUE TO MONITOR
--- NOTE | 2018-11-19 16:30 | NUR ---
ADMINSITERED MEDICATIONS PER MAR. PATIENT COMPLAINING OF NAUSEA, ADMINISTERED ZOFRAN PER MAR. CALL LIGHT WITHIN REACH
--- NOTE | 2018-11-19 16:38 | NUR ---
PATIENT HAS TEMPURATURE OF 102.1 ORALLY. ADMINISHERED TYLENOL PO. WILL REASSESS TEMP. PATIENT REFUSED COOLING MEASURES, BUT REMOVED BLANKET AND LOWERED TEMP ON AC UNIT IN ROOM
[2018-11-19 16:50] VITALS: BP 133/71
--- NOTE | 2018-11-19 18:31 | NUR ---
DR WAYNE SAW PATIENT. UPDATED DR ON PATIENT STATUS. DR. WAYNE TO SPEAK WITH TOUR CONSULTANT TAKING CARE OF PATIENT AND TO ENTER RECOMENDATIONS
--- NOTE | 2018-11-19 19:25 | NUR ---
RECEIVED PT SITTING UP IN BED, NO ACUTE DISTRESS OBSERVED. DENIES PAIN OR DISCOMFORT AT THIS TIME. ABD ROUND AND SOFT WITH ACTIVE BOWEL SOUNDS, DENIES N/V, ADMITS TO LOOSE STOOL EARLIER TODAY. ABD INCISIONS X5, S/P LAP CAITLYN ON 11/14/18, MEDIAL UPPER INCISION SEALED WITH DERMABOND, REMAINING INCISIONS KHLOE. NO BLEEDING OR S&S OF INFECTION NOTED, ALL INCISIONS CLEAN AND DRY. AA/OX4, ABLE TO MAKE NEEDS KNOWN. MED-SURG, NO TELE. PULSES PRESENT AND EQUAL THROUGHOUT, NO EDEMA. BREATHING ON RA, EVEN AND UNLABORED, NO SOB OR DYSPNEA. FREELY VOIDS URINE WITH BRP. AMBULATORY AND ABLE TO REPOSITION SELF IN BED. IV TO LH IN PLACE, DRY, PATENT, INTACT, AND INFUSING IVF WELL, NO PAIN, REDNESS OR SWELLING NOTED COMFORT AND SAFETY MEASURES IN PLACE. ALL NEEDS ASSESSED AND ATTENDED TO. CALL LIGHT WITHIN REACH. WILL CONTINUE TO MONITOR
[2018-11-19 20:22] VITALS: BP 114/72
--- NOTE | 2018-11-19 21:25 | NUR ---
DR. BAINS IN TO SEE PT AT THIS TIME, ORDERS FOR INDIUM WBC LABELED SCAN
--- NOTE | 2018-11-19 22:33 | NUR ---
PT REQUESTED TO HAVE HER TEMP CHECKED, ORAL TEMP 100.9 COOLING MEASURES INITIATED. PRN TYLENOL GIVEN PER EMAR.
--- NOTE | 2018-11-20 00:33 | NUR ---
PRN TORADOL IVP GIVEN PER EMAR, TEMP REASSESSED, 98.4 ORAL AT THIS TIME. COOLING MEASURES REMAIN IN PLACE.
[2018-11-20 05:55] VITALS: BP 103/58
--- NOTE | 2018-11-20 07:37 | NUR ---
PT DID WELL WITH BOWEL PREP, BM WATERY LIQUID YELLOW WITH MILD SEDIMENT NOTED. PT COMPLIED WITH NURSING CARE THROUGHOUT THE SHIFT, SLEPT WELL IN INTERVALS. NO ACUTE DISTRESS OBSERVED AT THIS TIME, PT LAYING IN BED, BREATHING EVEN AND UNLABORED, AROUSABLE TO VERBAL STIMULI. COMFORT AND SAFETY MEASURES MAINTAINED. ALL NEEDS ASSESSED AND ATTENDED TO. CALL LIGHT WITHIN REACH. WILL CONTINUE TO MONITOR AND ENDORSE CARE TO DAY SHIFT NURSE
--- NOTE | 2018-11-20 08:08 | NUR ---
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
--- NOTE | 2018-11-20 08:51 | NUR ---
PER [facility], PT CANNOT WILL BE RADIOACTIVE X 3 DAYS AND CANNOT HAVE ANTIBIOTICS X 3 DAYS STARTING NOW. TABITHA HEREDIA NOTIFIED AND CHARGE NURSE NOTIFIED.
--- NOTE | 2018-11-20 09:39 | NUR ---
PT OFF UNIT TO Nitrone[facility].
[2018-11-20 10:13] VITALS: BP 106/59
--- NOTE | 2018-11-20 10:38 | NUR ---
PT BACK ON UNIT FROM NUCLEAR MED, NO RESPIRATORY DISTRESS NOTED, DENIES PAIN, CALL LIGHT WITHIN REACH.
[2018-11-20 10:44] LABS: CALCIUM 8.5 mg/dL (8.5-10.1); CARBON DIOXIDE 27.9 mmol/L (21-32); CHLORIDE SERUM 102 mmol/L (98-107); CREATININE SERUM 0.6 mg/dL (0.6-1.0); GFR1 > 60 mL/min; GLUCOSE SERUM 88 mg/dL (74-106); POTASSIUM SERUM 4.3 mmol/L (3.5-5.1); SODIUM SERUM 141 mmol/L (136-145)
[2018-11-20 11:02] LABS: BASOPHIL % 0 % (0-2); RED CELL DISTRIBUTION WIDTH 15.4 % (11.5-14.5)
[2018-11-20 11:33] LABS: PLATELET COUNT 593 x10^3mcL (130-400)
--- NOTE | 2018-11-20 12:01 | NUR ---
PER NUCLEAR MED, TECH WILL DRAW BLOOD AT 1300 AND REINJECT @ 1700, AND INDUIN SCAN WILL OCCUR IN 24 HRS ON 11/21 @ 1700. NO ANTIBIOTICS FOR 3 DAYS. ALL THE ABOVE EXPLAINED TO PT AND , BOTH VERBALIZED UNDERSTANDING. PT RESTING IN BED, NO RESPIRATORY DISTRESS NOTED, DENIES PAIN, CALL LIGHT WITHIN REACH.
--- NOTE | 2018-11-20 12:28 | NUR ---
PT COMPLAINING THAT SHE FEELS "WARM AND FLUSHED", TEMP 100.5, TYLENOL PO GIVEN AND ICE PACK PLACED ON PT FOREHEAD, AC ON, CALL LIGHT WITHIN REACH.
--- NOTE | 2018-11-20 14:21 | NUR ---
PT RESTING IN BED, NO RESPIRATORY DISTRESS NOTED, DENIES PAIN, CALL LIGHT WITHIN REACH.
[2018-11-20 17:37] VITALS: BP 132/53
--- NOTE | 2018-11-20 18:48 | NUR ---
PT GIVEN TORADOL IVP FOR TEMP 101.8, TEMP RECHECKED 101.
--- NOTE | 2018-11-20 19:10 | NUR ---
RECEIVED PT SITTING UP IN BED, NO ACUTE DISTRESS OBSERVED. DENIES PAIN OR DISCOMFORT AT THIS TIME. PT WITH SPIKING FEVERS, COOLING MEASURES REMAIN IN PLACE. ABD ROUND AND SOFT WITH ACTIVE BOWEL SOUNDS, DENIES N/V/D. 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 NO BLEEDING OR S&S OF INFECTION NOTED, ALL INCISIONS CLEAN AND DRY. AA/OX4, ABLE TO MAKE NEEDS KNOWN. MED-SURG, NO TELE. PULSES PRESENT AND EQUAL THROUGHOUT, NO EDEMA. BREATHING ON RA, EVEN AND UNLABORED, NO SOB OR DYSPNEA. FREELY VOIDS URINE WITH BRP. AMBULATORY AND ABLE TO REPOSITION SELF IN BED. IV X2 DRY, PATENT, AND INTACT, IV TO LH INFUSING IVF WELL, NO PAIN, REDNESS OR SWELLING NOTED. IV TO RAC S/L AT THIS TIME. COMFORT AND SAFETY MEASURES IN PLACE. ALL NEEDS ASSESSED AND ATTENDED TO. CALL LIGHT WITHIN REACH. WILL CONTINUE TO MONITOR
--- NOTE | 2018-11-20 19:39 | NUR ---
ENDORSED CARE TO JOHN WILD.
[2018-11-20 21:01] VITALS: BP 126/61
--- NOTE | 2018-11-21 05:10 | NUR ---
PT COMPLIED WITH NURSING CARE THROUGHOUT THE SHIFT, SLEPT WELL IN INTERVALS. NO ACUTE DISTRESS OBSERVED AT THIS TIME, PT LAYING IN BED, BREATHING EVEN AND UNLABORED, AROUSABLE TO VERBAL STIMULI. COMFORT AND SAFETY MEASURES MAINTAINED. ALL NEEDS ASSESSED AND ATTENDED TO. CALL LIGHT WITHIN REACH. WILL CONTINUE TO MONITOR AND ENDORSE CARE TO DAY SHIFT NURSE
[2018-11-21 06:05] VITALS: BP 117/65
[2018-11-21 06:15] LABS: BASOPHIL % 0.1 % (0-2)
[2018-11-21 06:39] LABS: CALCIUM 8.4 mg/dL (8.5-10.1); CARBON DIOXIDE 25.4 mmol/L (21-32); CHLORIDE SERUM 105 mmol/L (98-107); CREATININE SERUM 0.5 mg/dL (0.6-1.0); GFR1 > 60 mL/min; GLUCOSE SERUM 95 mg/dL (74-106); PHOSPHOROUS 4.6 mg/dL (2.5-4.9); SODIUM SERUM 142 mmol/L (136-145)
--- NOTE | 2018-11-21 08:01 | NUR ---
RECEIVED PATIENT ALERT AND ORIENTED TIMES FOUR. SHE HAS BEEN WITHOUT ANTIBIOTICS FOR THREE DAYS AND PLAN OF CARE IS FOR INDIUM SCAN LATER TODAY. NO FEVER SO FAR THIS SHIFT BUT HAS BEEN HAVING THAT THIS ADMISSION AND DR HALL HAS BEEN ON THE CASE. PATIENT IS AMBULATORY AND SHE HAS NOT COMPLAINED OF PAIN AT THIS TIME. WILL CONTINUE TO MONITOR INDICATED.
[2018-11-21 08:23] LABS: PLATELET COUNT 618 x10^3mcL (130-400); RED CELL DISTRIBUTION WIDTH 14.8 % (11.5-14.5)
--- NOTE | 2018-11-21 09:00 | NUR ---
RECIEVED ALERT AND ORIENTED TIMES FOUR. SHE HAS TOLERATED DIET OFFERED. SHE IS WITH WOUND SITES INTACT AND PATIENT HAS SOME MODERATE BRUISING TO THE SITES WELL BUT IS HEALING AND NOTHING NEW NOTED FORM THE PREVIOUS DAYS STAFF TOOK CARE OF HER. SHE DENIES PAIN AT THIS TIME AND HAS BEEN OOB AMBULATING ON HER OWN. SHE HAS CLEAR BREATH SOUNDS AND BOWEL SOUNDS ACTIVE. PATIENT HAS NOTED VITALS AT THIS TIME AT 97.1, 101, 18, 117/65, 97% ON ROOM AIR. KATHY MERCADO NTOED LAB OF THE WBC AT 18.3, AND THE BUN AT 6.0AND PLT AT 593. PATIENT HAS BEEN WITHOUT ANTIBIOTICS AND EXPLAINED THE RATIONAL AGAIN TO THE PATIENT FOR INDIUM SCAN TODAY. WILL CONTINUE TO MONTIOR INDICATED.
[2018-11-21 09:23] VITALS: BP 109/64
[2018-11-21 11:11] LABS: BILIRUBIN DIRECT 0.15 mg/dL (0.0-0.2); BILIRUBIN TOTAL 0.32 mg/dL (0.20-1.00); TOTAL PROTEIN, SERUM 6.3 g/dL (6.4-8.2)
[2018-11-21 11:12] LABS: ALBUMIN 2.1 g/dL (3.4-5.0)
--- NOTE | 2018-11-21 13:36 | NUR ---
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 She said that her appetite is coming back. Pt. does not have N/V and says that's he has been drinking Ensure clear TID. Estimated Nutritional Needs based on body weight (75 kg) Energy: 6047-0578 kcal/d (25-30 kcal/kg) Protein: 75-90 g/d (1.0-1.2 g/kg) Fluid: 7500-1613 (1ml/kcal) or per MD Nutrition Diagnosis 1. Inadequate oral intake related to poor PO, altered GI function as evidenced by PO intake <50%, fair appetite. (Improving- pt. report) Intervention 1. Recommend continuing low fat diet w/ Ensure clear TID. Monitor/Evaluate Goal: Have pt meet at least 75% of estimated needs Monitor: PO intake, Labs, GI function F/U in 3-5 days as moderate risk 11/24-
--- NOTE | 2018-11-21 13:36 | NUR ---
1. Recommend continuing low fat diet w/ Ensure clear TID.
--- NOTE | 2018-11-21 17:09 | NUR ---
FAMILY AT BEDSIDE AND AWAITING THE INDIUM SCAN. PATIENT HAS BEEN ANXIOUS ABOUT THIS MOST OF THE DAY. SHE HAS HAD REPORTED FEVER SO FAR THIS SHIFT. WILL CONTINUE TO MONITOR.
[2018-11-21 17:40] VITALS: BP 126/61
--- NOTE | 2018-11-21 17:41 | NUR ---
DOWN FOR INDIUM SCAN AT THIS TIME. TRAY FOR EVENING MEAL SAVED FOR WHEN SHE RETURNS TO THE FLOOR.
--- NOTE | 2018-11-21 19:35 | NUR ---
PT SITTING UP IN BED. AA&O X4. NO SOB ON ROOM AIR. NO C/O PAIN. DENIES N/V. NO DISTRESS NOTED. IV TO RAC AND LEFT HAND, INTACT. ABD INCISIONS, C/D/I. SAFETY MEASURES IN PLACE. BED IN LOWEST POSITION. SIDE RAILS UP X2. INSTRUCTED PT TO USE THE CALL LIGHT IF ASSISTANCE IS NEEDED. CALL LIGHT WITHIN REACH. FAMILY AT BEDSIDE.
[2018-11-21 21:34] VITALS: BP 117/45
--- NOTE | 2018-11-22 02:05 | NUR ---
PT RESTING WITH EYES CLOSED. NO SOB ON ROOM AIR. BREATHING EVEN AND UNLABORED. NO FACIAL GRIMACING. NO DISTRESS NOTED. SAFETY MEASURES IN PLACE. CALL LIGHT WITHIN REACH. WILL CONTINUE TO MONITOR.
--- NOTE | 2018-11-22 05:03 | NUR ---
PT SLEPT AT LONG IN TERVALS THROUGHOUT SHIFT. NO SOB ON ROOM AIR. BREATHING EVEN AND UNLABORED. NO ACUTE DISTRESS NOTED. SAFETY MEASURES MAINTAINED. ALL NEEDS ATTENDED TO. CALL LIGHT WITHIN REACH. WILL CONTINUE TO MONITOR AND ENDORSE CONTINUITY OF CARE TO ONCOMING RN.
[2018-11-22 05:40] VITALS: BP 115/64
[2018-11-22 06:42] LABS: RED CELL DISTRIBUTION WIDTH 14.5 % (11.5-14.5)
[2018-11-22 06:53] LABS: CALCIUM 8.5 mg/dL (8.5-10.1); CARBON DIOXIDE 24.6 mmol/L (21-32); CHLORIDE SERUM 104 mmol/L (98-107); CREATININE SERUM 0.5 mg/dL (0.6-1.0); GFR1 > 60 mL/min; GLUCOSE SERUM 95 mg/dL (74-106); POTASSIUM SERUM 3.9 mmol/L (3.5-5.1); SODIUM SERUM 140 mmol/L (136-145)
[2018-11-22 07:50] LABS: BASOPHIL % 0 % (0-2); PLATELET COUNT 614 x10^3mcL (130-400)
--- NOTE | 2018-11-22 08:00 | NUR ---
RECEIVED PATIENT ALERT AND ORIENTED TIMES FOUR. SHE HAS BEEN OFF THE 02 AND TOLERATED WELL. WOUND SITES TO THE ABDOMEN ARE HEALING WITH BRUISING TO THESITE RECEEDING WELL. PATIENT HAS DERMABOND AND INTACT TO THE FIVE SITES OF POST LAPROSCOPIC CHOLECYSECTOMY. PATIENT HAS BEEN OOB AND TOELRATE WELL. SHE IS PASSING GAS AND HAS HAD A STOOL. SHE TOLERATE DIET AND FLUIDS WELL. THE INDIUM SCAN WAS NEGATIVE AND PATIENT AHD BEEN WITH LOWERING OF THE WBCS. VITALS AT THIS TIME AT 98.8, 125, 18, 115/64, 98%ON ROOM AIR. PATIENT HAD BEEN ON FLAGYL AND LEVQUIN AND ON HOLD AT THIS TIME. SHE STARR DNO ADVERS REACTION TO THESE MEDICATIONS. SHE AHS NO HISTORY BUT HAD A ERCP ON THE October AND A LAP CAITLYN ON THE . FIVE SITES INTACT AND SHE HAS ACTIVE BOWEL SOUNDS AND NO INCIDENCE OF NAUSEA OR VOMITING. 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 DENIES ANY PAIN AT THIS TIME. WILL CONTINUE TO UPDATE PATIENT ON PLAN OF CARE AND MONITOR INDCATED.
[2018-11-22 09:55] VITALS: BP 113/65
--- NOTE | 2018-11-22 10:17 | NUR ---
NEW ORDER FOR CT OF THE ABDOMEN. ADVISED PATIENT TO NOT EAT ANYTHING FOR NOW. PATIENT HAS BEEN WITHOUT FEVER THIS AM. SHE IS ANXIOUS TO GO HOME. RESULTS OF CT PENDING AND POSSIBLE DISCHARGE HOME IS DEPENDANT.
--- NOTE | 2018-11-22 10:26 | NUR ---
NEW ORDER FOR CT ABD.
--- NOTE | 2018-11-22 14:12 | NUR ---
PATIENT WAITING FOR RESULTS OF THE CT OF THE ABDOMEN. PATIENT WANTS A DIFFERENT MEAL. REQUESTED FISH. WILL CONTINUE TO FREQUENTLY CHECK FOR CT RESULTS INDICATED.
[2018-11-22 16:53] VITALS: BP 104/54
--- NOTE | 2018-11-22 17:16 | NUR ---
CALLED TABITHA THE CONFERENCE INTERPRETER ABOUT THE PATIENT POSSIBLE DISCHARGE PLAN. SHE ADVISED TO CONTINUE THE IV ANTIBIOTICS THAT WERE ON HOLD AND TO ORDER LIPASE FOR NOW. READ TO HER THE RESULTS OF THE CT. SHE STATES HERSON WILL NEED TO DESIDE IF THE PATIENT IS STABLE TO GO HOME. RESTARTED THE LEVAQUIN AND FLAGYL AND LIPASE WAS DRAWN. WILL CONTINUE TO MONITOR AND NO FEVER NOTED SO FAR THIS SHIFT.
--- NOTE | 2018-11-22 19:45 | NUR ---
RECEIVED REPORT FROM DAY SHIFT RN. PT RESTING IN BED, WATCHING TV. AA&O X4. BREATHING EVEN AND UNLABORED ON ROOM AIR. NO C/O PAIN AT THIS TIME. IV TO RAC, LR INFUSING. ABD INCISION X5 C/D/I. SAFETY MEASURES IN PLACE. CALL LIGHT WITHIN REACH.
[2018-11-22 20:38] VITALS: BP 109/56
--- NOTE | 2018-11-23 02:00 | NUR ---
PT RESTING WITH EYES CLOSED. NO SOB ON ROOM AIR. NO DISTRESS NOTED. CALL LIGHT WITHIN REACH. WILL CONTINU ETO MONITOR.
[2018-11-23 05:13] VITALS: BP 114/54
[2018-11-23 06:33] LABS: BASOPHIL % 0.2 % (0-2)
--- NOTE | 2018-11-23 06:44 | NUR ---
PT RESTED AT INTERVALS DURING SHIFT. NO SOB ON ROOM AIR. NO C/O PAIN. NO ACUTE DISTRESS NOTED. PT AMBULATED ALONG THE HALLWAY. SAFETY MEASURES MAINTAINED. ALL NEEDS ATTENDED TO. WILL ENDORSE CONTINUITY OF CARE TO ONCOMING RN.
[2018-11-23 07:15] LABS: CALCIUM 8.5 mg/dL (8.5-10.1); CARBON DIOXIDE 24.7 mmol/L (21-32); CHLORIDE SERUM 103 mmol/L (98-107); CREATININE SERUM 0.5 mg/dL (0.6-1.0); GFR1 > 60 mL/min; GLUCOSE SERUM 104 mg/dL (74-106); POTASSIUM SERUM 3.9 mmol/L (3.5-5.1); SODIUM SERUM 139 mmol/L (136-145)
--- NOTE | 2018-11-23 07:30 | NUR ---
ALERT AND ORIENTED. BREATHING FREELY ON RA. DENIES PAIN. MED SURG PT. ABD SOFT, HYPOACTIVE BOWEL SOUNDS. 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 NO REDNESS OR DRAINAGE NOTED. BRUSING NOTED UNDER INCISIONS. AMBULATORY, AMBULATES IN HALLWAY. ENCOURAGED TO DEEP BREATH EVERYHOUR AND CONTINUE AMBULATING OCCASSIONALY. CALL LIGHT WITHIN REACH.
[2018-11-23 07:56] LABS: PLATELET COUNT 717 x10^3mcL (130-400)
[2018-11-23 08:51] VITALS: BP 106/71
[2018-11-23] MEDS ORDERED: LEVAQUIN500 M1 PO (11:20)
[2018-11-23] MEDS ORDERED: FLA500 PO (11:20)
[2018-11-23 13:24] VITALS: BP 106/71
--- NOTE | 2018-11-23 14:01 | NUR ---
DC'D TO HOME. NO TELE. IV DC'D INTACT. PRESCIPTIONS GIVEN FOR LEVAQUIN AND FLAGYL, F/U MARIA LUISA GIVEN. ALL DC INSTRUCTIONS REVIEWED WITH PT AND HER AT BEDSIDE SIGNED BY PT. INFORMED PT SHE MAY BE IN CLOSE CONTACT WITH HER CHILDREN 30 MIN AT A TIME Q 2 HOURS FOR THE NEXT 24 HOURS. SHE IS TO SLEEP ALONE TONIGHT. POST INDIUM SCAN.
== END 2018-11-23 14:00 | disposition home or self-care (01) | DRG 417 ==
LOC: ED 00:27 → MU 03:48
PROVIDERS: Internal Medicine; Internal Medicine Gastroenterology; Surgery; ADMIT General Practice
PROC: 0F798ZZ Dilation of Common Bile Duct, Via Natural or Artificial Opening Endoscopic (ICD-10-PCS; 2018-11-12)
PROC: 0F778ZZ Dilation of Common Hepatic Duct, Via Natural or Artificial Opening Endoscopic (ICD-10-PCS; 2018-11-12)
PROC: BF131ZZ Fluoroscopy of Gallbladder and Bile Ducts using Low Osmolar Contrast (ICD-10-PCS; 2018-11-12)
PROC: BF131ZZ Fluoroscopy of Gallbladder and Bile Ducts using Low Osmolar Contrast (ICD-10-PCS; 2018-11-14)
PROC: 0FT44ZZ Resection of Gallbladder, Percutaneous Endoscopic Approach (ICD-10-PCS; principal; 2018-11-14 13:00)
DX: K80.00 Calculus of gallbladder with acute cholecystitis without obstruction (principal); K85.10 Biliary acute pancreatitis without necrosis or infection; J18.9 Pneumonia, unspecified organism; E87.6 Hypokalemia; E83.51 Hypocalcemia; Z88.0 Allergy status to penicillin; Z98.51 Tubal ligation status
CPT/HCPCS: 43262; 84439; A9547; C1769; C1887; G0378; J0330; J1170; J1610; J1885; J1940; J1956; J2250; J2270; J2405; J2543; J2704; J2710; J3010; J3480; J3490; J7030; J7120; J7121; Q0092; Q9967